=== PATIENT | female | born 1955 | race Caucasian/White ===

== ENCOUNTER 2018-09-04 15:14 | Emergency (ER) | payer BC ==
[2018-09-04 15:19] VITALS: RESP 18
[2018-09-04 16:18] VITALS: BP 138/76
--- NOTE | 2018-09-04 16:35 | ED ---
General Adult HPI - General Chief complaint: Recheck/Abnormal Lab/Rx Stated complaint: High BP Time Seen by Provider: 09/04/18 15:21 Source: patient Mode of arrival: ambulatory Limitations: no limitations - History of Present Illness Initial comments: The patient is a 62 year old female who presents emergency department with complaint of lightheadedness. Patient states symptoms have been going on for the past one week. She states that one week ago she did alter the dosing of her blood pressure medication. She takes Lotensin 40 mg for her blood pressure. She normally takes her blood pressure in the morning. She noted that her blood pressures have been slowly declining. She does believe this is because she lost 10 pounds recently. She took it upon herself and cut her blood pressure medication in half. She states that she also cut her statin in half. Ever since medication change she has felt slightly lightheaded in the morning. This morning she was at work when she had onset of lightheadedness when she stood up from her desk and turned around quickly. 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 They measured her blood pressure and it was extremely elevated at 190 systolic. They did recommend that the patient go to the emergency room for further evaluation. She does arrive to us asymptomatic at this time. She denies any headaches, visual changes, chest pain, shortness of breath. No nausea or vomiting. The lightheadedness is usually associated with positional changes. She does have an appointment to see her primary care physician on Friday. - Related Data Home Medications Medication Instructions Recorded Confirmed sitaGLIPtin PHOS/metFORMIN HCL 1 tab PO HS 05/01/16 09/04/18 [Janumet 50-1,000 mg Tablet] Benazepril HCl [Lotensin] 40 mg PO DAILY 09/04/18 09/04/18 Calcium Carbonate [Calcium] 600 mg PO DAILY 09/04/18 09/04/18 Cholecalciferol [Vitamin D3] 1,000 unit PO DAILY 09/04/18 09/04/18 Cyanocobalamin (Vitamin B-12) 1,000 mcg PO DAILY 09/04/18 09/04/18 [Vitamin B-12] Magnesium 200 mg PO DAILY 09/04/18 09/04/18 Multivitamins, Thera [Multivitamin 1 tab PO DAILY 09/04/18 09/04/18 (formulary)] metFORMIN HCL 1,000 mg PO QAM 09/04/18 09/04/18 Allergies Allergy/AdvReac Type Severity Reaction Status Date / Time Egg Derived Allergy Rash/Hives Verified 09/04/18 15:42 egg yolk Allergy Rash/Hives Verified 09/04/18 15:42 Sulfa (Sulfonamide Allergy Rash/Hives Verified 09/04/18 15:42 Antibiotics) Review of Systems ROS Statement: Those systems with pertinent positive or pertinent negative responses have been documented in the HPI. ROS Other: All systems not noted in ROS Statement are negative. Past Medical History Past Medical History: Diabetes Mellitus, Hypertension, Osteoarthritis (OA) History of Any Multi-Drug Resistant Organisms: None Reported Date of last positivie culture/infection: None MDRO Source:: None Past Surgical History: Breast Surgery, Section, Orthopedic Surgery, Tonsillectomy Additional Past Surgical History / Comment(s): BREAST BX-BENIGN. LEFT ACL. [email or web address] SX, 05-06-16 total lt knee Past Anesthesia/Blood Transfusion Reactions: No Reported Reaction Past Psychological History: No Psychological Hx Reported Smoking Status: Former smoker Past Alcohol Use History: None Reported Past Drug Use History: None Reported - Past Family History Mother Family Medical History: Coronary Artery Disease (CAD), Diabetes Mellitus, Hypertension Additional Family Medical History / Comment(s): AICD Father Family Medical History: Cancer, CVA/TIA Additional Family Medical History / Comment(s): COLO RECTAL CANCER, PROSTATE CANCER, SKIN CANCER General Exam Limitations: no limitations General appearance: alert, in no apparent distress Head exam: Present: atraumatic, normocephalic, normal inspection Eye exam: Present: normal appearance, PERRL, EOMI. Absent: scleral icterus, conjunctival injection, periorbital swelling ENT exam: Present: normal exam, mucous membranes moist Neck exam: Present: normal inspection. Absent: tenderness, meningismus, lymphadenopathy Respiratory exam: Present: normal lung sounds bilaterally. Absent: respiratory distress, wheezes, rales, rhonchi, stridor Cardiovascular Exam: Present: regular rate, normal rhythm, normal heart sounds. Absent: systolic murmur, diastolic murmur, rubs, gallop, clicks GI/Abdominal exam: Present: soft, normal bowel sounds. Absent: distended, tenderness, guarding, rebound, rigid Extremities exam: Present: normal inspection, full ROM, normal capillary refill. Absent: tenderness, pedal edema, joint swelling, calf tenderness Back exam: Present: normal inspection Neurological exam: Present: alert, oriented X3, CN II-XII intact Psychiatric exam: Present: normal affect, normal mood Skin exam: Present: warm, dry, intact, normal color. Absent: rash Course Vital Signs 09/04/18 09/04/18 09/04/18 15:15 16:10 16:46 Temperature 98.4 F 98.2 F Pulse Rate 89 82 Respiratory 18 Rate Blood Pressure 156/82 Blood Pressure 143/83 [Right Arm Sitting] Blood Pressure 152/80 [Right Arm Standing] Blood Pressure 138/76 [Right Arm Supine] O2 Sat by Pulse 98 96 Oximetry EKG Findings - EKG Comments: EKG Findings:: The patient's EKG demonstrates a normal sinus rhythm with ventricular rate of 79. The 170. QRS 78. QTC of 408. There are no acute ST segment elevations or depressions concerning for ischemic changes. No signs of Alcantar Parkinson White or Brugada syndrome. Medical Decision Making - Medical Decision Making Patient was seen by myself. She was placed in room 27. I did discuss diagnosis, differential and treatment options. The patient is requesting to have an EKG performed at this time. I also recommended orthostatic vital signs. Orthostatics are negative. EKG demonstrates a normal sinus rhythm. I did recommend laboratory studies. Due to the patient's lightheadedness, I also offered a CT of the patient's head. The patient refused. She is of sound mind and capable of making her own decisions. She does state that she has an appointment on Friday to have her blood drawn and see her primary care physician. I told the patient that she continue taking the same dose of her blood pressure medication as directed by her physician. She is to not make any medication changes without physician consent. The patient understood. If she has any new or worsening symptoms, she is to return to the emergency room. She was discharged in stable condition - Differential Diagnosis Orthostatic hypotension, accelerated hypertension, presyncope, med effect Disposition Clinical Impression: Hypertension, Pre-syncope Disposition: HOME SELF-CARE Condition: Good Additional Instructions: Please follow-up with your primary care physician. Run all medication changes past your doctor prior to initiating. Monitor your blood pressures 2-3 times d aily. Return to the emergency department if you have any new or worsening symptoms Is patient prescribed a controlled substance at d/c from ED?: No Referrals: Re Luna MD [Primary Care Provider] - 1-2 days Time of Disposition: 16:37
[2018-09-04 16:50] VITALS: PULSE 82; TEMP 98.2
== END 2018-09-04 16:50 | disposition home or self-care (01) ==
LOC: EC 15:14
DX: I10 Essential (primary) hypertension (principal); R55 Syncope and collapse; E11.9 Type 2 diabetes mellitus without complications; Z79.84 Long term (current) use of oral hypoglycemic drugs; Z79.899 Other long term (current) drug therapy; Z88.2 Allergy status to sulfonamides; Z91.012 Allergy to eggs; Z87.891 Personal history of nicotine dependence
CPT/HCPCS: 93005; 99283